=== PATIENT | male | born 1990 | race African-American/Black ===

== ENCOUNTER 2017-06-20 17:10 | Emergency (ER) | payer SELFPAY ==
[~2017-06-20] VITALS: Ht 188 cm; Wt 78.0 kg
[2017-06-20] MEDS ORDERED: SODIUM CHLORIDE 0.9% 1,000 ML IV ONE (21:31)
[2017-06-20] MEDS ORDERED: OLANZAPINE 10 MG/VIAL IM ONE (21:45)
[2017-06-20 22:58] LABS: HEMATOCRIT. 41.3 % (42.0-52.0); HEMOGLOBIN. 14.2 g/dL (14.0-18.0); MEAN CORPUSCULAR HEMOGLOBIN 31.1 pg (28.0-32.0); MEAN CORPUSCULAR VOLUME 90.3 fL (80.0-94.0); MEAN PLATELET VOLUME 8.5 fl (7.4-10.4); PLATELET 301 x1000/uL (130-400); RED BLOOD CELL COUNT 4.57 mill/uL (4.7-6.1); RED CELL DISTRIBUTION WIDTH 12.7 % (11.6-14.6)
[2017-06-20 23:01] LABS: CHLORIDE 102 mEq/L (98-107)
[2017-06-20 23:03] LABS: INR 1.1; PROTHROMBIN TIME 11.4 sec (9.4-11.6)
[2017-06-20 23:08] LABS: AMMONIA 30 uMol/L (<32)
[2017-06-20 23:09] LABS: ETHANOL BLOOD < 10 mg/dL
[2017-06-20 23:12] LABS: ATYPICAL LYMPHOCYTES 2
[2017-06-20 23:13] LABS: PLATELET ESTIMATE NORMAL
[2017-06-20 23:22] LABS: CLARITY URINE CLEAR (CLEAR); COLOR URINE YELLOW (YELLOW); KETONES URINE NEGATIVE (NEGATIVE); LEUKOCYTE ESTERASE URINE NEGATIVE (NEGATIVE); NITRITE URINE NEGATIVE (NEGATIVE); OCCULT BLOOD URINE NEGATIVE (NEGATIVE); PROTEIN URINE NEGATIVE (NEGATIVE)
[2017-06-20 23:33] LABS: *AMPHETAMINES SCREEN URINE PRESUMTIVE POSITIVE (NEGATIVE); *BARBITURATES SCREEN URINE NEGATIVE (NEGATIVE); *BENZODIAZEPINES SCREEN URINE NEGATIVE (NEGATIVE); *COCAINE SCREEN URINE NEGATIVE (NEGATIVE); CANNABINOID URINE SCREEN PRESUMTIVE POSITIVE (NEGATIVE); METHADONE URINE SCREEN NEGATIVE (NEGATIVE); OPIATES URINE SCREEN PRESUMTIVE POSITIVE (NEGATIVE); PHENCYCLIDINE URINE SCREEN NEGATIVE (NEGATIVE)
[2017-06-21 13:33] VITALS: BP 128/62
== END 2017-06-21 14:57 | disposition left against medical advice (07) ==
LOC: ER 18:18
DX: T43.621A Poisoning by amphetamines, accidental (unintentional), initial encounter (principal); T40.601A Poisoning by unspecified narcotics, accidental (unintentional), initial encounter; T40.7X1A Poisoning by cannabis (derivatives), accidental (unintentional), initial encounter; G92 Toxic encephalopathy; F23 Brief psychotic disorder; R47.81 Slurred speech; R79.1 Abnormal coagulation profile; R94.31 Abnormal electrocardiogram [ECG] [EKG]; Z78.1 Physical restraint status; Y92.89 Other specified places as the place of occurrence of the external cause
CPT/HCPCS: 36415; 70450; 71045; 80053; 80305; 81003; 82140; 82962; 83605; 84443; 85025; 85610; 93005; 96360; 96372; 99285; G0482; J3490; J7030; A4315